=== PATIENT | male | born 1980 | race Caucasian/White ===

== ENCOUNTER → 2017-08-28 | Outpatient (CLI) | payer OTHER | END | disposition home or self-care (01) | LOC: CFH 07:35 | PROVIDERS: ATTEND Nurse Practitioner Primary Care | DX: R16.1 Splenomegaly, not elsewhere classified (principal); E55.9 Vitamin D deficiency, unspecified; E03.9 Hypothyroidism, unspecified; E78.2 Mixed hyperlipidemia; J45.909 Unspecified asthma, uncomplicated; Z79.899 Other long term (current) drug therapy; R94.5 Abnormal results of liver function studies | CPT/HCPCS: 76700 ==